=== PATIENT | female | born 2000 | race Caucasian/White ===

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

== ENCOUNTER 2019-01-02 11:17 | Outpatient (CLI) | payer MEDICAID, SELFPAY ==
--- NOTE | 2019-01-02 11:00 | DI.RAD_ITS ---
EXAM: XR ABDOMEN FLAT PLATE INDICATION: Rectal bleeding, hemorrhage of anus and rectum, K62.5, r/o constipation. COMPARISON: No exams were available for comparison TECHNIQUE: 2D digital imaging was performed. FINDINGS: The lung bases are clear. There is stool throughout the colon suggesting constipation. No evidence of bowel obstruction is present. No organomegaly is present. The bones are unremarkable. There is an intrauterine device in the pelvis. IMPRESSION: Constipation.
== END 2019-01-02 11:37 ==
PROVIDERS: PCP Nurse Practitioner Family; Visit Provider Pediatrics
DX: K62.5 Hemorrhage of anus and rectum (principal); K59.00 Constipation, unspecified; Z97.5 Presence of (intrauterine) contraceptive device
CPT/HCPCS: 74018

== ENCOUNTER 2019-05-22 17:02 | Outpatient (CLI) | payer MEDICAID, SELFPAY ==
[2019-05-23 10:47] LABS: Measles IgG Antibody Positive (See Note); Mumps Antibody IgG Positive (See Note); Rubella IgG Ab (UVM) Positive (See Note); Varicella IgG Antibody Positive (See Note)
[2019-05-23 12:25] LABS: HBs Antibody, Quant <3.1 mIU/mL (See Note); Hepatitis B Surface Ab Negative (See Note)
== END 2019-05-22 17:22 ==
PROVIDERS: PCP Nurse Practitioner Family; Visit Provider Nurse Practitioner Family
DX: Z01.84 Encounter for antibody response examination (principal)
CPT/HCPCS: 36415; 86706; 86787; 86735; 86762; 86765

== ENCOUNTER 2019-08-03 11:02 | Outpatient (REF) | payer MEDICAID, SELFPAY ==
[2019-08-07 13:19] LABS: Chlamydia Result Negative (Negative); GC Result Negative (Negative)
== END 2019-08-03 11:22 ==
LOC: LBN 11:02
PROVIDERS: PCP Nurse Practitioner Family; Visit Provider Nurse Practitioner Family
DX: Z11.3 Encounter for screening for infections with a predominantly sexual mode of transmission (principal)
CPT/HCPCS: 87491; 87591

== ENCOUNTER 2019-08-10 03:44 | Outpatient (CLI) | payer MEDICAID, SELFPAY ==
[2019-08-11 13:52] LABS: Hepatitis B Surface Ag Negative (Negative)
== END 2019-08-10 04:04 ==
PROVIDERS: PCP Nurse Practitioner Family; Visit Provider Nurse Practitioner Family
DX: Z11.59 Encounter for screening for other viral diseases (principal)
CPT/HCPCS: 36415; 87340

== ENCOUNTER 2019-11-30 02:54 | Outpatient (CLI) | payer MEDICAID, SELFPAY ==
[2019-12-01 10:31] LABS: Hep B Core Antibody Negative (Negative)
== END 2019-11-30 03:14 ==
PROVIDERS: PCP Nurse Practitioner Family; Visit Provider Family Medicine
DX: Z01.84 Encounter for antibody response examination (principal); Z92.29 Personal history of other drug therapy
CPT/HCPCS: 36415; 86704

== ENCOUNTER 2019-12-18 02:01 | Outpatient (CLI) | payer MEDICAID, SELFPAY ==
[2019-12-19 10:15] LABS: HBs Antibody, Quant >1000.0 mIU/mL (See Note); Hepatitis B Surface Ab Positive (See Note)
== END 2019-12-18 02:21 ==
PROVIDERS: PCP Nurse Practitioner Family; Visit Provider Nurse Practitioner Family
DX: Z01.84 Encounter for antibody response examination (principal); Z71.89 Other specified counseling
CPT/HCPCS: 36415; 86706

== ENCOUNTER 2020-04-10 17:00 | Outpatient (REF) | payer MEDICAID, SELFPAY ==
[2020-04-10 21:44] LABS: Absolute Basophil Count 0.03 10^3/uL (0.0-0.2); Absolute Eosinophil Count 0.06 10^3/uL (0.0-0.7); Absolute Lymphocyte Count 2.12 10^3/uL (1.2-3.4); Absolute Monocyte Count 0.35 10^3/uL (0.1-0.8); Absolute Neutrophil Count 1.68 10^3/uL (1.2-6.7); Basophils % 0.7; Eosinophils % 1.4; HCT 42.3 % (36.0-46.0); HGB 14.1 g/dL (11.2-15.7); MCH 28.3 pg (27.0-33.0); MCHC 33.3 % (32.0-36.0); MCV 84.9 fL (80-95); Monocytes % 8.3; Neutrophils % 39.6; Nucleated RBC 0 %; Platelet Count 210 10^3/uL (130-400); RBC 4.98 10^6/uL (3.93-5.22); RDW 12.9 % (11.7-14.6); WBC 4.24 10^3/uL (4.4-10.8)
[2020-04-10 22:04] LABS: ALT 22 U/L (14-59); AST 14 U/L (15-37); Albumin 3.9 g/dL (3.4-5.0); Alkaline Phosphatase 38 U/L (46-116); BUN 9 mg/dL (7-18); Bilirubin, Total 0.3 mg/dL (0.2-1.0); C-Reactive Protein 0.13 mg/dL (0.0-0.3); CREATININE 0.9 mg/dL (0.55-1.02); Chloride 105 mmol/L (98-107); Glucose 97 mg/dL (74-106); Potassium 3.9 mmol/L (3.5-5.1); Sodium 140 mmol/L (136-145); TSH 0.88 uIU/mL (0.36-3.74); Total Protein 7.3 g/dL (6.4-8.2)
[2020-04-10 22:48] LABS: Mono Screening Negative (Negative)
== END 2020-04-10 17:01 | disposition home or self-care (01) ==
LOC: LBN 17:00
PROVIDERS: PCP Nurse Practitioner Family; Visit Provider Emergency Medicine
DX: E03.9 Hypothyroidism, unspecified (principal); R53.83 Other fatigue
CPT/HCPCS: 80053; 84443; 85025; 86140; 86308

== ENCOUNTER 2020-04-12 21:45 | Outpatient (CLI) | payer MEDICAID, SELFPAY ==
--- NOTE | 2020-04-12 10:15 | DI.RAD_ITS ---
EXAM: XR THUMB RT and XR wrist RT complete CLINICAL HISTORY: right thumb pain,m79.644. TECHNIQUE: 2D digital imaging was performed. COMPARISON: CR XR WRIST RT COMPLETE from 04/12/2020 FINDINGS: BONES: No acute fracture is present. No bony destructive lesion is seen. The bones are normally mine ralized. Note is made of an ulna minus. JOINTS: No dislocation present. The joint spaces are well maintained. SOFT TISSUE: Normal. No radiopaque foreign bodies. IMPRESSION: Ulna minus. Otherwise, unremarkable examination. DATA REPOSITORY: RADIATION DOSE DELIVERED:
== END 2020-04-12 21:46 ==
LOC: DI 04-15 21:48
PROVIDERS: PCP Nurse Practitioner Family; Visit Provider Emergency Medicine
DX: M79.644 Pain in right finger(s) (principal); M21.831 Other specified acquired deformities of right forearm
CPT/HCPCS: 73110; 73140

== ENCOUNTER 2020-11-14 01:42 | Outpatient (CLI) | payer MEDICAID, SELFPAY ==
--- NOTE | 2020-11-14 | DI.US_ITS ---
Exam(s) US OB TRANSVAGINAL EXAM: US OB TRANSVAGINAL INDICATION: CRAMPY BACK PAIN,? ECTOPIC. COMPARISON: None this gestation TECHNIQUE: Uterus is anteverted, measuring 7.9 cm length by 4.6 cm AP x 5.9 cm wide. There is an eccentrically located intrauterine gestational sac in the far right side of the endometr ial cavity at the level the fundus. This does not contain an obvious yolk sac nor obvious pole . Station sac size is approximately 5 weeks and 5 days. No uterine fibroids. No free fluid in the endometrial canal. Right ovary measures 3.4 x 1.4 x 2.8 cm. Appears unremarkable. No surrounding fluid. Left ovary measures 2.7 x 2.3 x 1.8 cm. Also appears unremarkable. No surrounding fluid There are no obvious extraovarian adnexal masses no free fluid cul-de-sac. FINDINGS: Abnormal appearing eccentrically located intrauterine gestational sac. This does not contain an obvi ous pole nor definable yolk sac. No abnormal adnexal masses nor free fluid in the adnexal regions are cul-de-sac. This study does not exclude the possibility of ectopic . IMPRESSION:
== END 2020-11-14 02:02 ==
PROVIDERS: PCP Nurse Practitioner Family; Visit Provider Nurse Practitioner Women's Health
DX: Z34.91 Encounter for supervision of normal pregnancy, unspecified, first trimester (principal); M54.9 Dorsalgia, unspecified
CPT/HCPCS: 76817

== ENCOUNTER 2020-11-19 01:49 | Outpatient (CLI) | payer MEDICAID, SELFPAY ==
[2020-11-19 12:29] LABS: HCG Quant, Pregnancy 11243 mIU/mL (1-3)
== END 2020-11-19 01:50 | disposition home or self-care (01) ==
LOC: LBO 01:49
PROVIDERS: PCP Nurse Practitioner Family
DX: Z34.91 Encounter for supervision of normal pregnancy, unspecified, first trimester (principal)
CPT/HCPCS: 36415; 84702

== ENCOUNTER 2020-11-21 02:54 | Outpatient (CLI) | payer MEDICAID, SELFPAY ==
[2020-11-21 15:04] LABS: HCG Quant, Pregnancy 10970 mIU/mL (1-3)
== END 2020-11-21 02:55 | disposition home or self-care (01) ==
LOC: LBO 02:54
PROVIDERS: PCP Nurse Practitioner Family; Visit Provider Nurse Practitioner Women's Health
DX: Z34.91 Encounter for supervision of normal pregnancy, unspecified, first trimester (principal)
CPT/HCPCS: 36415; 84702

== ENCOUNTER 2021-01-23 08:58 | Outpatient (REF) | payer MEDICAID, SELFPAY ==
--- NOTE | 2021-01-23 08:30 | PAPFT_PTH ---
PATIENT: Keke Ochoa LOC: [place] U#:[id number] AGE/SX: 20/F ROOM: RE01/23/[address]: MARIBELL Johnson : 2000 BED: DIS: 01/23/2021 SPEC #: [id number] RECD: 01/23/21 12:36 STATUS: AJ REQ #: [id number] LUCIA: 01/23/21 08:[address]: Loren Cerna DEPT: [facility] Cytology RECD BY: Lou Estrella ENTERED: 01/23/21 12:36 SP TYPE: PAPFT OTHR DR: MARIBELL Shelby Tissues: 1 - CX/ENDOCX FOR PAP SMEARS Procedures: PAP THIN PREP/UVM Screening Comments: [id number]
[2021-01-24 15:21] LABS: Chlamydia Result Negative (Negative); GC Result Negative (Negative)
== END 2021-01-23 08:59 | disposition home or self-care (01) ==
LOC: LBN 08:58
PROVIDERS: PCP Nurse Practitioner Family; Visit Provider Nurse Practitioner Family
DX: Z11.3 Encounter for screening for infections with a predominantly sexual mode of transmission (principal); Z12.4 Encounter for screening for malignant neoplasm of cervix
CPT/HCPCS: 87491; 87591; 88142

== ENCOUNTER 2021-05-12 04:36 | Outpatient (CLI) | payer MEDICAID, SELFPAY ==
[2021-05-12 12:13] LABS: HCG Quant, Pregnancy 1207 mIU/mL (1-3)
== END 2021-05-12 04:37 | disposition home or self-care (01) ==
LOC: LBO 04:36
PROVIDERS: PCP Nurse Practitioner Family; Visit Provider Obstetrics & Gynecology
DX: Z34.91 Encounter for supervision of normal pregnancy, unspecified, first trimester (principal)
CPT/HCPCS: 36415; 84702

== ENCOUNTER 2021-05-14 03:52 | Outpatient (CLI) | payer MEDICAID, SELFPAY ==
[2021-05-14 17:37] LABS: HCG Quant, Pregnancy 2417 mIU/mL (1-3)
== END 2021-05-14 03:53 | disposition home or self-care (01) ==
LOC: LBO 03:52
PROVIDERS: PCP Nurse Practitioner Family; Visit Provider Nurse Practitioner Women's Health
DX: Z34.91 Encounter for supervision of normal pregnancy, unspecified, first trimester (principal)
CPT/HCPCS: 36415; 84702

== ENCOUNTER 2021-06-24 01:43 | Outpatient (CLI) | payer MEDICAID, SELFPAY ==
[2021-06-24 10:33] LABS: Kit/Specimen SENT
[2021-06-24 11:37] LABS: TSH (W/Ref FT4) 0.73 uIU/mL (0.36-3.74)
[2021-06-24 14:31] LABS: *AMPHETAMINES SCREEN URINE Negative (Negative); *BARBITURATES SCREEN URINE Negative (Negative); *BENZODIAZEPINES SCREEN URINE Negative (Negative); Cannabinoids THC Negative (Negative); Cocaine Screen,Urine Negative (Negative); METHADONE URINE SCREEN Negative (Negative); OPIATES URINE SCREEN Negative (Negative)
[2021-06-24 14:32] LABS: Tricyclic Antidepressants Negative (Negative)
[2021-06-24 15:35] LABS: Abs Immature Grans 0.01 10^3/uL (0.0-0.06); Absolute Basophil Count 0.04 10^3/uL (0.0-0.2); Absolute Eosinophil Count 0.05 10^3/uL (0.0-0.7); Absolute Lymphocyte Count 1.53 10^3/uL (1.2-3.4); Absolute Monocyte Count 0.46 10^3/uL (0.1-0.8); Absolute Neutrophil Count 4.77 10^3/uL (1.2-6.7); Basophils % 0.6; Eosinophils % 0.7; HCT 42.3 % (36.0-46.0); HGB 14.3 g/dL (11.2-15.7); Immature Grans % 0.1; Lymphocytes % 22.3; MCH 29.1 pg (27.0-33.0); MCHC 33.8 % (32.0-36.0); MCV 86 fL (80-95); Monocytes % 6.7; Neutrophils % 69.6; Platelet Count 170 10^3/uL (130-400); RBC 4.92 10^6/uL (3.93-5.22); RDW 12.6 % (11.7-14.6); RDW-SD 39.5 fL; WBC 6.86 10^3/uL (4.4-10.8)
[2021-06-25 10:07] LABS: Hepatitis B Surface Ag Negative (Negative)
[2021-06-25 10:20] LABS: Varicella IgG Antibody Positive (See Note)
[2021-06-25 10:23] LABS: Rubella IgG Ab (UVM) Positive (See Note)
[2021-06-25 10:46] LABS: Hepatitis C Ab w Rflx HCV PCR Negative (Negative)
[2021-06-25 11:00] LABS: HIV-1/2 Ag & Ab Screen Negative (Negative)
[2021-06-25 20:55] LABS: Syphilis IgG w/Reflex Nonreactive (Nonreactive)
[2021-06-28 05:59] LABS: Buprenorphine Negative ng/mL (Cutoff: 5.0); Norbuprenorphine Negative ng/mL (Cutoff: 2.5)
[2021-07-01 16:26] LABS: Result Summary NEGATIVE; Specimen WB Whole Blood
== END 2021-06-24 01:44 | disposition home or self-care (01) ==
LOC: LBO 01:43
PROVIDERS: PCP Nurse Practitioner Family; Visit Provider Advanced Practice Midwife
DX: O99.281 Endocrine, nutritional and metabolic diseases complicating pregnancy, first trimester (principal); E04.9 Nontoxic goiter, unspecified; Z3A.11 11 weeks gestation of pregnancy
CPT/HCPCS: 80307; 86787; 86803; 86850; 86900; 86901; 87340; 87389; 81220; 84443; 85025; 86762; 86780; 87086

== ENCOUNTER 2021-06-24 15:41 | Outpatient (REF) | payer MEDICAID, SELFPAY | END 2021-06-24 15:42 | disposition home or self-care (01) | LOC: NCHCN 15:41 | PROVIDERS: PCP Nurse Practitioner Family; Visit Provider Advanced Practice Midwife ==

== ENCOUNTER 2021-06-24 17:53 | Outpatient (REF) | payer MEDICAID, SELFPAY ==
[2021-06-26 14:44] LABS: Chlamydia Result Negative (Negative); GC Result Negative (Negative)
== END 2021-06-24 17:54 | disposition home or self-care (01) ==
LOC: LBN 17:53
PROVIDERS: PCP Nurse Practitioner Family; Visit Provider Advanced Practice Midwife
DX: Z34.91 Encounter for supervision of normal pregnancy, unspecified, first trimester (principal); Z3A.11 11 weeks gestation of pregnancy
CPT/HCPCS: 87491; 87591

== ENCOUNTER 2023-12-22 15:57 | Outpatient (REF) | payer OTHER, SELFPAY | END 2023-12-22 15:58 | disposition home or self-care (01) | LOC: LBN 15:57 | PROVIDERS: PCP Nurse Practitioner Family; Visit Provider Nurse Practitioner Family | DX: J02.9 Acute pharyngitis, unspecified (principal); J06.9 Acute upper respiratory infection, unspecified | CPT/HCPCS: 87070 ==

== ENCOUNTER 2024-03-06 20:51 | Outpatient (REF) | payer OTHER, SELFPAY | END 2024-03-06 20:52 | disposition home or self-care (01) | LOC: LBN 20:51 | PROVIDERS: PCP Nurse Practitioner Family; Visit Provider Nurse Practitioner Family | DX: N89.8 Other specified noninflammatory disorders of vagina (principal); F90.9 Attention-deficit hyperactivity disorder, unspecified type | CPT/HCPCS: 87480; 87510; 87660 ==

== ENCOUNTER 2024-04-16 03:48 | Emergency (ER) | payer BC, SELFPAY ==
[2024-04-16] VITALS (53 sets, daily range): BP systolic 108–145; BP diastolic 67–90; PULSE 94–142; RESP 14–33; TEMP 36.4–36.5; O2SAT 95–99
[2024-04-16] MEDS: Lactated Ringers 1,000 ML 1000 ML IV (04:02)
--- NOTE | 2024-04-16 04:16 | W.ED.GENAD ---
Discharge Plan Disposition Patient Disposition: Home Condition: Good Discharge Details Clinical Impression: Nausea & vomiting, Dehydration Primary Care Provider: Kell Jimenez ED Provider: Florin López Home Meds and New Rx's Prescriptions: No Action ibuprofen 600 mg tablet 600 mg PO Q6H PRN (Reason: pain) Qty: 30 0RF albuterol sulfate 90 mcg/actuation HFA aerosol inhaler 2 puff inhalation Q6H PRN (Reason: shortness of breath or wheezing) Qty: 8.5 0RF ondansetron 8 mg tablet,disintegrating 8 mg PO Q8H PRN (Reason: nausea and vomiting) Qty: 30 2RF dextroamphetamine-amphetamine [Adderall XR] 5 mg capsule,extended release 24hr 5 mg PO QAM MDD 1 tablet Qty: 28 0RF metoclopramide HCl [Reglan] 5 mg tablet 5 mg PO DAILY PRN Discharge Instructions Instructions: Nausea and vomiting in adults Additional Instructions: At this time you have been rehydrated with 2 L of IV fluids. Your electrolytes are stable. Your heart rate has notably improved. I suspect a viral etiology as cause of your nausea and vomiting. There is no evidence of pancreatitis. You have requested to hold off on CT imaging at this time. Please monitor your symptoms closely, and if you develop worsening or return of your lower abdominal pain it is imperative that you return for reassessment and rediscussion of potential need for CT imaging. Please take your Zofran and Reglan as prescribed. Please take small frequent sips of water. Stick with a liquid diet and soft diet for the next 2 to 3 days. If you notice any worsening of your symptoms, or any new symptoms such as vomiting, diarrhea, fever, chills, shortness of breath, chest pain, numbness, weakness, or fainting , please return immediately to the emergency department for reevaluation. Please follow up with your primary care provider as soon as possible for reassessment and reevaluation. As always, it was a pleasure participating in your medical care today. Stand Alone Forms: Work Release Referrals: Kell Jimenez NP [Primary Care Provider] - [facility] General Date/Time Provider Initiated Documentation: 04/16/24 04:00. HPI Narrative: 23-year-old female with a past medical history of appendectomy, reactive airway disease, who presents today for evaluation of nausea and vomiting. She states that for the last 48 hours she has had the symptoms. She vomits as soon as she tries to eat or drink anything. No blood in her stool. No blood in her vomit. She has tried taking Reglan and Zofran at home, but with no improvement. This evening she felt lightheaded and extremely dehydrated and came to the ER for further assessment. She does admit to lower abdominal pain and cramping which seems to come and go. Worse with positioning, and with vomiting. She denies any vaginal discharge. No other complaints at this time. No other modifying factors. Related Data Home Medications ?Medication ?Instructions ?Recorded ?Confirmed ibuprofen 600 mg tablet 600 mg PO Q6H PRN pain #30 tabs 07/28/22 04/16/24 albuterol sulfate 90 mcg/actuation 2 puff inhalation Q6H PRN 12/25/23 04/16/24 aerosol inhaler shortness of breath or wheezing #8.5 grams ondansetron 8 mg disintegrating 8 mg PO Q8H PRN nausea and 02/08/24 04/16/24 tablet vomiting #30 tabs dextroamphetamine-amphetamine ER 5 5 mg PO QAM #28 caps 04/07/24 04/16/24 mg 24hr capsule,extend release (Adderall XR) metoclopramide HCl 5 mg tablet 5 mg PO DAILY PRN 04/16/24 04/16/24 (Reglan) Previous Rx's ?Medication ?Instructions ?Recorded ibuprofen 600 mg tablet 600 mg PO Q6H PRN pain #30 tabs 07/28/22 albuterol sulfate 90 mcg/actuation 2 puff inhalation Q6H PRN 12/25/23 aerosol inhaler shortness of breath or wheezing #8.5 grams ondansetron 8 mg disintegrating 8 mg PO Q8H PRN nausea and 02/08/24 tablet vomiting #30 tabs dextroamphetamine-amphetamine ER 5 5 mg PO QAM #28 caps 04/07/24 mg 24hr capsule,extend release (Adderall XR) Allergies Allergy/AdvReac Type Severity Reaction Status Date / Time latex AdvReac Skin Rash Verified 04/16/24 03:55 General Stated Complaint: Abd Prob GERTRUDIS: 3 Exam Narrative Exam Narrative: 1.Const: Well-nourished, Well-developed, appearing stated age 2.Eyes: PERRL, no conjunctival injection, and symmetrical lids. 3.ENT: Atraumatic external nose and ears. Dry MM. Neck: Symmetric, trachea midline, No thyromegaly. 4.CVS: +S1/S2, Peripheral pulses 2+ and equal in all extremities. Brisk capillary refill in all extremities. 5.RESP: Unlabored respiratory effort. Clear to auscultation bilaterally. No wheezes rales or rhonchi 6.GI: Soft, nondistended. No guarding or rebound. Mild achiness on palpation of the left and mid lower abdominal quadrants. No right lower quadrant tenderness. No flank or CVA tenderness. 7.MSK: Normocephalic/Atraumatic, Extremities w/o deformity or ttp No cyanosis or clubbing, Normal movement of all extremities 8.Skin: Warm, Dry. No rashes or lesions. 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 Sensation grossly intact, no focal neurologic deficits. 10.Psych: (AAO) x3. Appropriate mood and affect Course Vital Signs Vital signs: Vital Signs Temperature 36.4 C L 04/16/24 03:51 Pulse 142 H 04/16/24 03:51 Respiratory Rate 19 04/16/24 03:51 Blood Pressure 145/90 H 04/16/24 03:51 Pulse Oximetry 96 04/16/24 03:51 Temperature 36.5 C 04/16/24 03:57 Temperature Source Oral 04/16/24 03:57 Pulse 126 H 04/16/24 03:57 Respiratory Rate 19 04/16/24 03:51 Blood Pressure 145/90 H 04/16/24 03:57 Blood Pressure Position Sitting 04/16/24 03:57 Pulse Oximetry 95 04/16/24 03:57 Oxygen Delivery Method Room Air 04/16/24 03:57 Oxygen Flow Rate 0 04/16/24 03:51 Pain Level 6 04/16/24 03:57 Medical Decision Making 23-year-old female with a past medical history of appendectomy, reactive airway disease, who presents today for evaluation of nausea and vomiting. She states that for the last 48 hours she has had the symptoms. She vomits as soon as she tries to eat or drink anything. No blood in her stool. No blood in her vomit. She has tried taking Reglan and Zofran at home, but with no improvement. This evening she felt lightheaded and extremely dehydrated and came to the ER for further assessment. She does admit to lower abdominal pain and cramping which seems to come and go. Worse with positioning, and with vomiting. She denies any vaginal discharge. No other complaints at this time. No other modifying factors. Exam demonstrates notably dry mucous membranes, mild achiness on palpation of the lower abdomen on the left. No guarding or rebound to suggest an acute surgical abdomen. Differential is highest for viral enteritis, less likely pancreatitis. Colitis and diverticulitis of concern but less likely. Patient is declining CT imaging at this time. We will rehydrate with 2 L of saline as her heart rate is in the 140s. We will give IV antiemetics, Ofirmev, monitor closely and reassess. 6:43 AM On reassessment after 2 L of rehydration patient is feeling much better. Labs show white count of 11.1, hemoconcentration with a hemoglobin of 17. Electrolytes normal, renal function normal. After Zofran and Reglan and fluids patient is feeling much better, heart rate has improved to 101 now. Blood pressure remained stable. She has tolerated a p.o. trial and would like to go home. Repeat exam demonstrates improvement of mild lower abdominal achiness. No evidence of an acute surgical abdomen, no guarding or rebound. Patient would like to continue to hold off on any CT imaging at this time which I do feel is reasonable given the reassuring clinical exam. Patient will be discharged home. She does have home Zofran and Reglan already. Recommend bland diet for the next 2 days. Discussed red flags for which to return. I have extensively reviewed the treatment plan and discharge instructions with the patient. I have addressed all patient concerns at this time. The patient was made aware of what symptoms to monitor for that would warrant a return to the emergency department. Discussed the plan with the patient, they demonstrate verbal understanding and agreement with our assessment and plan at this time. The documentation in this chart was dictated using eBuilder dictation software. Please excuse any dictation errors. 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) Partial rupture, some laxity noted Medical History Infectious mononucleosis Attention deficit hyperactivity disorder Surgical History H/O right wrist surgery (02/26/14) Arthroscopy and arthrotomy S/P nasal septoplasty (06/14/13) History of cranial surgery (11/10/00) Frontal craniotomy, fronto-orbital advancement, 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 Maternal Grandmother No problems noted. 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 [employer] Pets and animals: No Sexually active: Yes Do you think of yourself as: straight/heterosexual Current gender identity: female What is your relationship status?: never How often do you talk on the phone with friends or family?: twice per week How often do you get together with friends or relatives?: twice per week How often do you attend latter-day or orthodox services?: decline to answer Do you belong to any clubs or organized social groups?: no Panel score (0-1 are the most socially isolated patients): 1 What type of physical activity do you participate in: other Details: Kickboxing Duration: 30-45 minutes/day Frequency: 5-6 times per week Seatbelt use: sometimes Helmet use: Yes Helmet use: always Drive intox or ride w/intox services delivery driver: No Do you feel safe at home: Yes Do you feel safe in your relationship?: Yes Additional Social history: In relationship with FOB Female Reproductive History Menstrual control method: permanent sterilization (male) History History 3 Para 0 Hx # Term Pregnancies 1 Multiple births 0 Hx # Pregnancies 0 Ectopic pregnancies 0 AB induced 1 Hx Number of Living Children 1 AB spontaneous 1
[2024-04-16 04:20] LABS: Abs Immature Grans 0.03 10^3/uL (0.0-0.06); Absolute Eosinophil Count 0.02 10^3/uL (0.0-0.7); Absolute Neutrophil Count 10.06 10^3/uL (1.2-6.7); Basophils % 0.4 %; Eosinophils % 0.2 %; HCT 51.7 % (36.0-46.0); HGB 17.2 g/dL (11.2-15.7); Immature Grans % 0.3 %; Lymphocytes % 2.9 %; MCHC 33.3 % (32.0-36.0); MCV 84 fL (80-95); MPV 10.5 fL (8.0-11.0); Monocytes % 6.3 %; Neutrophils % 89.9 %; Platelet Count 173 10^3/uL (130-400); RBC 6.15 10^6/uL (3.93-5.22); RDW-SD 39.8 fL; WBC 11.19 10^3/uL (4.4-10.8)
[2024-04-16] MEDS: ACETAMINOPHEN 1,000 MG/100 ML BAG 400 MG IVPB (04:34)
[2024-04-16] MEDS: Ondansetron 4 MG/2 ML VIAL IVP (04:34)
[2024-04-16 04:35] LABS: ALT 15 U/L (14-59); AST 13 U/L (15-37); Albumin 4.7 g/dL (3.4-5.0); Alkaline Phosphatase 49 U/L (46-116); Anion Gap 10.3 mmol/L (3-11); BUN 11 mg/dL (7-18); CO2 24.7 mmol/L (21.0-32.0); CREATININE 0.9 mg/dL (0.55-1.02); Calcium 9.4 mg/dL (8.5-10.1); Chloride 105 mmol/L (98-107); Estimated GFR 91.55 (mL/min/1.73m2); Glucose 165 mg/dL (74-106); Potassium 3.7 mmol/L (3.5-5.1); Sodium 140 mmol/L (136-145); Total Protein 7.9 g/dL (6.4-8.2)
[2024-04-16] MEDS: Normal Saline 1,000 ML 1000 ML IV (04:38)
[2024-04-16 04:42] LABS: Absolute Basophil Count 0.04 10^3/uL (0.0-0.2); Absolute Lymphocyte Count 0.32 10^3/uL (1.2-3.4); Lipase 28 U/L (<78)
[2024-04-16 04:43] LABS: Diff Comment RBC Morph Reviewed; RBC Morphology Normal
[2024-04-16 05:06] LABS: COVID-19 PCR Negative (Negative); Influenza A PCR Negative (Negative); Influenza B PCR Negative (Negative); RSV PCR Negative (Negative)
[2024-04-16 05:08] LABS: Source Nasopharynx
[2024-04-16] MEDS: Metoclopramide 10 MG/2 ML VIAL IVP (05:22)
[2024-04-16 06:07] LABS: Bilirubin Negative (Negative); Blood Negative (Negative); Clarity Clear (Clear); Glucose Negative (Negative); Ketones 80 mg/dL (Negative); Leukocyte Esterase Negative (Negative); Nitrite Negative (Negative); Urobilinogen 0.2 mg/dL (Up to 0.2); pH 5.5 (5-8)
== END 2024-04-16 06:48 | disposition home or self-care (01) ==
PROVIDERS: Emergency Provider Student in an Organized Health Care Education/Training Program; PCP Nurse Practitioner Family
DX: R10.9 Unspecified abdominal pain (principal); R11.2 Nausea with vomiting, unspecified; R19.7 Diarrhea, unspecified; E86.0 Dehydration
CPT/HCPCS: 80053; 83690; 87637; 96361; 96365; 96375; 99284; 81003; 85025; J0131; J2405; J2765

== ENCOUNTER 2024-07-28 11:29 | Outpatient (CLI) | payer BC, SELFPAY ==
[2024-07-28 12:03] LABS: Abs Immature Grans 0.01 10^3/uL (0.0-0.06); Absolute Basophil Count 0.05 10^3/uL (0.0-0.2); Absolute Eosinophil Count 0.05 10^3/uL (0.0-0.7); Absolute Lymphocyte Count 1.47 10^3/uL (1.2-3.4); Absolute Monocyte Count 0.44 10^3/uL (0.1-0.8); Absolute Neutrophil Count 2.23 10^3/uL (1.2-6.7); Basophils % 1.2 %; Eosinophils % 1.2 %; HCT 43.2 % (36.0-46.0); HGB 14.1 g/dL (11.2-15.7); Immature Grans % 0.2 %; Lymphocytes % 34.6 %; MCH 27.4 pg (27.0-33.0); MCHC 32.6 % (32.0-36.0); MCV 84 fL (80-95); MPV 9.8 fL (8.0-11.0); Monocytes % 10.4 %; Neutrophils % 52.4 %; Platelet Count 154 10^3/uL (130-400); RBC 5.15 10^6/uL (3.93-5.22); RDW 12.3 % (11.7-14.6); RDW-SD 37.3 fL; WBC 4.25 10^3/uL (4.4-10.8)
[2024-07-28 12:32] LABS: ALT 12 U/L (14-59); AST 14 U/L (15-37); Alkaline Phosphatase 45 U/L (46-116); Anion Gap 6.5 mmol/L (3-11); BUN 8 mg/dL (7-18); Bilirubin, Total 0.5 mg/dL (0.2-1.0); CO2 30.5 mmol/L (21.0-32.0); CREATININE 0.8 mg/dL (0.55-1.02); Calcium 9.4 mg/dL (8.5-10.1); Chloride 103 mmol/L (98-107); Estimated GFR 105.45 (mL/min/1.73m2); Glucose 97 mg/dL (74-106); Potassium 3.6 mmol/L (3.5-5.1); Sodium 140 mmol/L (136-145); Total Protein 6.9 g/dL (6.4-8.2)
== END 2024-07-28 11:30 | disposition home or self-care (01) ==
LOC: LBO 11:30
PROVIDERS: PCP Nurse Practitioner Family; Visit Provider Family Medicine
DX: R10.13 Epigastric pain (principal); Z00.00 Encounter for general adult medical examination without abnormal findings
CPT/HCPCS: 36415; 80053; 81003; 85025

== ENCOUNTER 2025-02-12 06:17 | Emergency (ER) | payer BC, SELFPAY ==
[2025-02-12 06:41] VITALS: BP 127/82; PULSE 79; RESP 12; TEMP 36.6; O2SAT 98
--- NOTE | 2025-02-12 07:01 | ED.GENADUL_ITS ---
Discharge Plan Disposition Patient Disposition: Home Discharge Details Clinical Impression: Nausea & vomiting Primary Care Provider: Kell Jimenez ED Provider: Ace Lovelace Home Meds and New Rx's Prescriptions: Continued ibuprofen 600 mg tablet 600 mg PO Q6H PRN (Reason: pain) Qty: 30 0RF albuterol sulfate 90 mcg/actuation HFA aerosol inhaler 2 puff inhalation Q6H PRN (Reason: shortness of breath or wheezing) Qty: 8.5 0RF norethindrone (contraceptive) [Floresita] 0.35 mg tablet 0.35 mg PO DAILY Qty: 84 3RF dextroamphetamine-amphetamine [Adderall XR] 5 mg capsule,extended release 24hr 5 mg PO QAM MDD 1 tablet Qty: 28 0RF ondansetron 8 mg tablet,disintegrating 8 mg PO Q8H PRN (Reason: nausea and vomiting) Qty: 30 2RF Discharge Instructions Additional Instructions: You were seen emergency department for your nausea and vomiting. Your blood work shows that your kidneys are working well. You have no signs of anemia. As we discussed if you develop any abdominal pain any vomiting that does not stop o r if you have any concerns otherwise please follow-up with your PCP as needed next week. Stand Alone Forms: Portal Information Discharge Data Discharge Date/Time-TO BE ENTERED AT DEPARTURE: 02/12/25 08:48 HPI General Date/Time Provider Initiated Documentation: 02/12/25 07:01 . HPI Narrative: MDM This is an overall very well-appearing normothermic and not tachycardic 24-year-old female with nausea and vomiting for which patient will receive assessment of labs in setting of her soft nontender abdomen. Patient has been having diarrhea and so I am not suspicious for small bowel obstruction. She has no right lower quadrant tenderness and she has a remote history of appendectomy so I am not suspicious for appendicitis. No pain out of proportion to suggest necrotizing soft tissue infection. No dysuria nor frequency to suggest UTI. No lateralizing flank pain making my suspicion lower for ureterolithiasis. Patient has no vascular risk factors and so based on her age I am not suspicious for ruptured AAA. No rash to abdomen to suggest zoster. No right upper quadrant tenderness to suggest acute cholecystitis. Will obtain lipase to ensure patient does not have pancreatitis. No chest pain to suggest ACS so I did not obtain ECG. Given her reassuring exam I do not feel she requires CT scan. 7:30 AM CBC lacks anemia thrombocytopenia and leukocytosis. 7:50 AM Comprehensive metabolic panel showing no NAS. Normal renal function. No acute LFT abnormalities. No acute electrolyte abnormalities. Negative hCG. Lipase within normal limits. 8:31 AM Patient was able to tolerate p.o. in the ED. She felt improved. We discussed that she should return to the ED if she developed abdominal pain that did not stop if she developed any persistent vomiting or if she had any other concerns. She understood her return indications and discharged with empiric trial of expectant outpatient management. HPI This is a patient presenting with nausea. The patient has been experiencing nausea since the morning of 02/10/2025. She reports severe abdominal pain, which was particularly intense on the right side and radiated to her back upon awakening this morning. The pain has since subsided. She describes her current abdominal pain as being located in the middle and extending to the right side. She has been vomiting frequently, including every evening. She attempted to alleviate the pain with Tylenol but was unable to keep it down. She has not taken her temperature but reports feeling cold and experiencing tremors in the morning. She has not consumed any food since 02/09/2025, although she did attempt to eat a cracker. She has tried to manage her symptoms with small sips of water. She also took Zofran at home, but it did not provide relief. She reports no dysuria, chest pain, or trouble breathing but mentions a sensation of tachycardia. Her medical history includes an appendectomy. PAST SURGICAL HISTORY: Appendectomy Exam General: Well-appearing in no acute distress speaking in complete sentences. Head: Normocephalic, atraumatic. Eye: Extraocular eye movements intact. No conjunctival injection. No scleral icterus. Ear, nose, mouth, throat: Grossly normal inspection. Normal voice, handling secretions normally. Neck: Trachea midline. Cardiovascular: Well-perfused distal extremities. Regular rate and rhythm Respiratory: Nonlabored respiration. Clear lungs bilaterally. Gastrointestinal: Nondistended abdomen. Soft. Nontender. No rebound. No guarding. Musculoskeletal: No edema. Moving all 4 extremities spontaneously. Skin: Normal for age and race, grossly normal temperature and turgor. No acute rash. Neurologic: Alert and appropriate, no apparent acute deficits. Psychiatric: Mood and manner are appropriate. Grooming and personal hygiene are appropriate. Related Data Home Medications ?Medication ?Instructions ?Recorded ?Confirmed ibuprofen 600 mg tablet 600 mg PO Q6H PRN pain #30 t abs 07/28/22 02/12/25 albuterol sulfate 90 mcg/actuation 2 puff inhalation Q 6H PRN 12/25/23 02/12/25 aerosol inhaler shortness of breath or wheez ing #8.5 grams norethindrone (contraceptive) 0.35 0.35 mg PO DAILY #8 4 tabs 11/10/24 02/12/25 mg tablet (Floresita) dextroamphetamine-amphetamine ER 5 5 mg PO QAM #28 cap s 02/05/25 02/12/25 mg 24hr capsule,extend release (Adderall XR) ondansetron 8 mg disintegrating 8 mg PO Q8H PRN nausea and 02/05/25 02/12/25 tablet vomiting #30 tabs Previous Rx's ?Medication ?Instructions ?Recorded ibuprofen 600 mg tablet 600 mg PO Q6H PRN pain #30 t abs 07/28/22 albuterol sulfate 90 mcg/actuation 2 puff inhalation Q 6H PRN 12/25/23 aerosol inhaler shortness of breath or wheez ing #8.5 grams norethindrone (contraceptive) 0.35 0.35 mg PO DAILY #8 4 tabs 11/10/24 mg tablet (Floresita) dextroamphetamine-amphetamine ER 5 5 mg PO QAM #28 cap s 02/05/25 mg 24hr capsule,extend release (Adderall XR) ondansetron 8 mg disintegrating 8 mg PO Q8H PRN nausea and 02/05/25 tablet vomiting #30 tabs Allergies Allergy/AdvReac Type Severity Reaction Status Date / Time latex AdvReac Skin Rash Verified 02/12/25 06:46 General Stated Complaint: Nausea/Vomit/Diar GERTRUDIS: 3 Course Vital Signs Vital signs: Vital Signs Temperature 36.6 C 02/12/25 06:41 Pulse 79 02/12/25 06:41 Respiratory Rate 12 02/12/25 06:41 Blood Pressure 127/82 02/12/25 06:41 Pulse Oximetry 98 02/12/25 06:41 Temperature 36.6 C 02/12/25 06:41 Temperature Source Oral 02/12/25 06:41 Pulse 79 02/12/25 06:41 Respiratory Rate 12 02/12/25 06:41 Blood Pressure 127/82 02/12/25 06:41 Blood Pressure Position Sitting 02/12/25 06:41 Pulse Oximetry 98 02/12/25 06:41 Oxygen Delivery Method Room Air 02/12/25 06:41 Oxygen Flow Rate 0 02/12/25 06:41 PFSH All Active Problems (Updated 02/12/25 @ 08:29 by Ace Lovelace MD) Nausea & vomiting (Acute) Abnormal uterine bleeding (Chronic) Attention deficit hyperactivity disorder (Chronic) Anxiety (Chronic) Medical History Infectious mononucleosis Attention deficit hyperactivity disorder Surgical History H/O right wrist surgery (02/26/14) Arthroscopy and arthrotomy S/P nasal septoplasty (06/14/13) History of cranial surgery (11/10/00) Frontal craniotomy, fronto-orbital advancement, 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 Maternal Grandmother No problems noted. 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 [employer] Pets and animals: No Sexually active: Yes Do you think of yourself as: straight/heterosexual Current gender identity: female What is your relationship status?: never How often do you talk on the phone with friends or family?: twice per week How often do you get together with friends or relatives?: twice per week How often do you attend congregation or latter day services?: decline to answer Do you belong to any clubs or organized social groups?: no Panel score (0-1 are the most socially isolated patients): 1 What type of physical activity do you participate in: other Details: Kickboxing Duration: 30-45 minutes/day Frequency: 5-6 times per week Seatbelt use: sometimes Helmet use: Yes Helmet use: always Drive intox or ride w/intox driver messenger: No Do you feel safe at home: Yes Do you feel safe in your relationship?: Yes Additional Social history: In relationship with FOB Female Reproductive History Menstrual control method: permanent sterilization (male) History History 3 Para 0 Hx # Term Pregnancies 1 Multiple births 0 Hx # Pregnancies 0 Ectopic pregnancies 0 AB induced 1 Hx Number of Living Children 1 AB spontaneous 1
[2025-02-12 07:19] LABS: Abs Immature Grans 0.02 10^3/uL (0.0-0.06); HCT 43.3 % (36.0-46.0); HGB 14.4 g/dL (11.2-15.7); Immature Grans % 0.3 %; MCH 27.8 pg (27.0-33.0); MCHC 33.3 % (32.0-36.0); MCV 84 fL (80-95); MPV 10.2 fL (8.0-11.0); Platelet Count 198 10^3/uL (130-400); RBC 5.18 10^6/uL (3.93-5.22); RDW 12.4 % (11.7-14.6); RDW-SD 38.0 fL; WBC 6.55 10^3/uL (4.4-10.8)
[2025-02-12] MEDS: Droperidol 5 MG/2 ML VIAL 1.25 MG IVP (07:21)
[2025-02-12] MEDS: DEXTROSE 5%-0.9% SALINE 1,000 ML 1000 ML IV (07:21)
[2025-02-12] MEDS: ACETAMINOPHEN 1,000 MG/100 ML BAG 400 MG IVPB (07:22)
[2025-02-12 07:36] LABS: HCG Qual (Serum) Negative
[2025-02-12 07:41] LABS: Lipase 30 U/L (<53)
[2025-02-12 07:43] LABS: ALT 8 U/L (10-49); AST 14 U/L (<34); Albumin 4.4 g/dL (3.2-5.0); Alkaline Phosphatase 35 U/L (46-116); Anion Gap 9.9 mmol/L (3-11); BUN 7 mg/dL (9-23); Bilirubin, Total 0.90 mg/dL (0.2-1.2); CO2 26.1 mmol/L (20.0-31.0); Calcium 9.1 mg/dL (8.3-10.6); Chloride 107 mmol/L (98-107); Glucose 104 mg/dL (74-106); Potassium 4.1 mmol/L (3.5-5.1); Sodium 143 mmol/L (136-145); Total Protein 6.8 g/dL (5.7-8.2)
[2025-02-12 08:21] VITALS: BP 106/66; PULSE 86; RESP 14; TEMP 36.3; O2SAT 98
== END 2025-02-12 08:48 | disposition home or self-care (01) ==
PROVIDERS: Emergency Provider Emergency Medicine; PCP Nurse Practitioner Family
DX: R11.2 Nausea with vomiting, unspecified (principal); R19.7 Diarrhea, unspecified; R10.30 Lower abdominal pain, unspecified
CPT/HCPCS: 36415; 80053; 83690; 96361; 96365; 96375; 99284; 84703; 85025; 99283; J0131; J1790; J7042